=== PATIENT | female | born 1990 | race African-American/Black ===

== ENCOUNTER 2022-07-30 08:57 | Emergency (ER) | payer OTHER, SELFPAY ==
--- NOTE | ~2022-07-30 | CT_ITS ---
EXAMINATION: CT abdomen pelvis w con INDICATION: Abdominal pain TECHNIQUE: Computed tomographic images of the abdomen and pelvis were obtained after the administrati on of 100 cc of Omnipaque 350 intravenous contrast. The dose-length product (DLP) was 504.08 mGy-cm. Automated exposure control and iterative reconstruction technique were employed. COMPARISON: None available FINDINGS: Minimal dependent atelectasis is present in the lung bases. The heart size is normal. Bilat eral breast implants are noted. The liver, spleen, pancreas, gallbladder, and adrenal glands are norm al. There is a 3 mm cyst in the right kidney upper pole. The left kidney is unremarkable. No patholog ically enlarged abdominal or pelvic lymph nodes are identified. There is no free intraperitoneal gas or evidence of bowel obstruction. There are surgical changes in the stomach. There is a 9.8 x 3.6 x 1 2.1 cm fluid collection in the midline anterior abdominal wall. IMPRESSION: 1. Large fluid collection in the anterior abdominal wall which could reflect abscess versus postopera tive seroma/hematoma. Reviewed, dictated and finalized at location B. [employer] IMPRESSION: 1. Large fluid collection in the anterior abdominal wall which could reflect ab scess versus postoperative seroma/hematoma.
--- NOTE | ~2022-07-30 | XR_ITS ---
EXAMINATION: XR chest 1V portable INDICATION: Cough TECHNIQUE: Portable AP chest at 1038 hours COMPARISON: None available FINDINGS: There are minimal airspace opacities of the lung bases. No pleural effusion or pneumothorax . The cardiomediastinal silhouette is normal. IMPRESSION: 1. Minimal bibasilar airspace opacity, consistent with atelectasis versus pneumonia. Reviewed, dictated and finalized at location B. FINISHER IMPRESSION: 1. Minimal bibasilar airspace opacity, consistent with atelectasis versus pneum onia.
[2022-07-30 09:58] VITALS: BP 120/79; TEMP 37.1
[2022-07-30] MEDS: SODIUM CHLORIDE 0.9% IV 1,000 ML 999 ML IV CONT (10:06)
[2022-07-30] MEDS: KETOROLAC 30 MG/ML VIAL (*BKC) IV PUSH (10:08)
[2022-07-30 10:11] LABS: Basophils Percent Auto 0.4 % (0.2-1.2); Eosinophils Absolute Auto 0.2 K/mm3 (0-0.3); Eosinophils Percent Auto 2.3 % (0-4.4); Hematocrit 36.8 % (37.0-47.0); Hemoglobin 11.9 g/dL (12.0-15.0); Immature Granulocyte Absolute 0.02 K/mm3 (0.00-0.031); Immature Granulocyte Percent A 0.3 % (0-0.5); Lymphocytes Absolute Auto 0.58 K/mm3 (0.9-3.2); Lymphocytes Percent Auto 7.4 % (18.3-44.2); Mean Corpuscular HGB Conc 32.3 g/dl (32-36); Mean Corpuscular Hemoglobin 25.1 pg (26-34); Mean Corpuscular Volume 77.5 fl (80-100); Mean Platelet Volume 11.3 fl (7.4-10.4); Monocytes Absolute Auto 0.4 K/mm3 (0.1-0.6); Monocytes Percent Auto 5.6 % (2.6-8.5); Neutrophils Absolute Auto 6.6 K/mm3 (1.3-6.7); Platelet Count Result 329 k/mm3 (150-375); Red Blood Count 4.75 M/mm3 (4.2-5.4); Red Cell Distribution Width 13.6 % (11.5-14.5); White Blood Count 7.9 K/mm3 (4.5-10.0)
[2022-07-30 10:22] LABS: Appearance Urine Clear (Clear); Bilirubin Urine Negative (Negative); Blood Urine Trace-intact (Negative); Color Urine Yellow (Yellow); Glucose Urine UA Negative (Negative); Ketones Urine Negative (Negative); Leukocyte Esterase Ur Negative LEU/UL (Negative); Nitrate Urine Negative (Negative); Protein Urine Negative (Negative); Specific Grav Ur 1.015 (1.001-1.035)
[2022-07-30 10:28] LABS: Mucus Urine Rare /lpf; RBC Urine 0-2 /hpf (0-2); Squamous Epithelial Cell Urine Few /hpf (Few); WBC Urine 0-3 /hpf
[2022-07-30 10:30] LABS: Alanine Aminotransferase 61 U/L (6-35); Albumin Level 4.4 g/dL (3.5-5.1); Alkaline Phosphatase 64 U/L (38-126); Anion Gap 11 mmol/L (8-16); Aspartate Amino Transferase 139 U/L (14-36); Bilirubin,Total 0.6 mg/dL (0.2-1.3); Blood Urea Nitrogen 4 mg/dL (7-17); Calcium 8.8 mg/dL (8.4-10.2); Carbon Dioxide 27 mmol/L (22-30); Chloride 99 mmol/L (98-107); Estimated CRCL calculation 115 ml/min; Estimated Glomerular Filt Rate > 60; Glucose 90 mg/dL (65-110); Lipase 42 U/L (23-300); Potassium 3.9 mmol/L (3.4-5.0); Sodium 137 mmol/L (137-145)
[2022-07-30 10:41] LABS: Influenza A QL RT-PCR Positive (Negative); Influenza B QL RT-PCR Negative (Negative); SARS-CoV-2 RNA PCR Negative
[2022-07-30 11:07] LABS: Add Urine Microscopic? YES
--- NOTE | 2022-07-30 12:37 | ED.GENADULT ---
HPI - General Adult General Chief complaint: Abdominal Pain Stated complaint: abd pain, vomiting Time Seen by Provider: 07/30/22 09:04 Source: RN notes reviewed History of Present Illness HPI narrative: Patient presents emergency room from home for multiple Complaints. Patient states she is began to feel ill approximately 2 days ago. She states that began with subjective fevers a headache rhinorrhea and a cough this been nonproductive she states that today she developed diarrhea as well as abdominal pain across the upper abdomen she has had no measured fever she denies any sore throat she states that her cough has been nonproductive she denies any nausea or vomiting denies any chest pain or shortness of breath states that she has not taken anything for her symptoms states she does have a known abdominal hernia and is scheduled to have surgery on her hernia Related Data Allergies Allergy/AdvReac Type Severity Reaction Status Date / Time No Known Allergies Allergy Verified 07/30/22 10:02 Review of Systems Review of Systems: Gen.: Report subjective fevers Eyes: Denies eye pain or visual change ENT:reports rhinorrhea Respiratory: Denies shortness of breath reports nonproductive cough CV: Denies chest pain or palpitations GI: Reports abdominal pain and diarrhea denies nausea vomiting Musculoskeletal: Denies back pain or muscle pain Neuro: Denies numbness, tingling, weakness or focal weakness Skin: Denies rash Except as documented, all other systems reviewed and negative [facility] Past Medical History Medical History (Updated 07/30/22 @ 12:42 by Ulisses Mosqueda DO) Patient denies significant medical history Social History Social History (Updated 07/30/22 @ 12:38 by Ulisses Mosqueda DO) Smoking status: Former smoker Exam Narrative: APPEARANCE: No acute distress, nontoxic, resting in bed EYES: EOMI HEENT: Normocephalic, atraumatic, bilateral turbinates boggy erythema exudate posterior pharynx RESPIRATORY: No respiratory distress Clear to auscultation bilaterally with no rhonchi wheezing or rales. CARDIOVASCULAR: Regular rate and rhythm without murmurs rubs or gallops. ABDOMINAL: Soft, there is a firmness over the mid abdomen just above a midline horizontal abdominal scar that goes across the entire abdomen there is mild tenderness in the right upper quadrant left upper quadrant no tenderness in right lower quadrant left lower quadrant no rebound or guarding MUSCULOSKELETAl: Moves all extremities. No clubbing, cyanosis or edema. NEURO: Awake and alert. Following commands, speech normal, no focal deficits SKIN:: Warm, dry. No rashes lesions or abrasions PSYCHIATRIC: Normal affect/mood, Course Course Emergency Course: Discussed with patient her CT results I discussed with her also her surgical scar the patient went to the [facility] in September and had a tummy tuck at that time post her operation she developed a seroma is being followed by her PCP Dr. graham she is also scheduled to have surgery by Dr. Saenz for her hernia that she states she has and the seroma is also known by him they think that it will resolve over time Cussed with radiology the patient has no elevated white WBC and is felt this is likely a seroma Patient states she is feeling better at this time states abdominal pain has resolved Discussed with patient results of workup and diagnosis. Discussed need for follow-up with primary care, proper use of medication, and reasons to return to the emergency department. Patient understands and agrees to current treatment plan Vital Signs Vital signs: Vital Signs Temperature 98.7 F 07/30/22 09:58 Blood Pressure 120/79 07/30/22 09:58 Temperature 98.7 F 07/30/22 09:58 Blood Pressure 120/79 07/30/22 09:58 Medical Decision Making [facility] Narrative Medical decision making narrative: Patient presents with flulike symptoms cough runny nose patient does test positive for influenza A I will s
== END 2022-07-30 12:56 | disposition home or self-care (01) ==
PROVIDERS: Emergency Provider Emergency Medicine
DX: J10.1 Influenza due to other identified influenza virus with other respiratory manifestations (principal); Z20.822 Contact with and (suspected) exposure to COVID-19; Z87.891 Personal history of nicotine dependence; R91.8 Other nonspecific abnormal finding of lung field; R93.5 Abnormal findings on diagnostic imaging of other abdominal regions, including retroperitoneum
CPT/HCPCS: 36415; 71045; 74177; 80053; 81001; 81025; 83690; 85025; 87636; 96361; 96374; 99284; J1885; J7030; Q9967